=== PATIENT | female | born 1955 | race Hispanic/Latino ===

== ENCOUNTER 2018-01-09 09:08 | Outpatient (CLI) | payer BC ==
--- NOTE | 2018-01-09 15:01 | Mammography Report ---
BILATERAL DIGITAL SCREENING MAMMOGRAM with CAD: 01/09/18 09:08:00 CLINICAL: Routine screening. COMPARISON:12/02/16 FINDINGS: The breasts are heterogeneously dense, which may obscure small masses. A right asymmetry on the MLO view persists with spot compression and on the lateral view.No architectural distortion or suspicious calcifications.The left breast is negative. IMPRESSION: A right inferior asymmetry requiring further workup. BI-RADS CATEGORY: 0 -- Additional Imaging Evaluation Required RECOMMENDATION: Recall for ultrasound of the inferior right breast. ACR BI-RADS MAMMOGRAPHIC CODES: 0 = Needs additional imaging evaluation; 1 = Negative; 2 = Benign; 3 = Probably benign; 4 = Suspicious; 5 = Malignant; 6 = Known biopsy-proven malignancy COMMENT: 1. Dense breast tissue, i.e., adenosis, fibrocystic changes, etc., may obscure an underlying neoplasm. 2. Approximately 10% of cancers are not detected with mammography. 3. A negative mammography report should not delay biopsy if a clinically suspicious mass is present. COMMENT: Patient follow-up letters are generated via our [employer] application.
== END 2018-01-09 09:09 | disposition home or self-care (01) ==
LOC: SPVWC 09:08
PROVIDERS: ATTEND Surgery
DX: Z12.31 Encounter for screening mammogram for malignant neoplasm of breast (principal)
CPT/HCPCS: 77067

== ENCOUNTER 2018-01-11 14:36 | Outpatient (CLI) | payer BC ==
--- NOTE | 2018-01-12 09:50 | Ultrasound Report ---
RIGHT BREAST ULTRASOUND: 01/11/18 14:36:00 CLINICAL: Mammographic asymmetry in the lower breast on screening mammogram. COMPARISON: 01/09/18 mammogram FINDINGS: Ultrasound of the lower right breast was performed and demonstrated several benign cysts. A cyst at 7 o'clock 5 cm from the nipple measures 5 x 5 x 4 mm. A central retroareolar cyst 3 o'clock measures 9 x 9 x 5 mm. No solid mass or shadowing. IMPRESSION: Benign cysts right breast. BI-RADS 2 - - Benign RECOMMENDATION: Routine mammographic screening in one year.
== END 2018-01-11 14:37 | disposition home or self-care (01) ==
LOC: SPVWC 14:36
PROVIDERS: ATTEND Surgery
DX: N60.01 Solitary cyst of right breast (principal)

== ENCOUNTER 2018-05-10 11:06 | Day surgery (SDC) | payer BC ==
[~2018-05-10 11:06] MED LIST: AK-Dilate ONE; IOPIDINE ONE; IOPIDINE OU ONE; MYDRIACYL ONE; MYDRIACYL OU ONE; NEOFRIN OU ONE
[2018-05-10] MEDS ORDERED: IOPIDINE OU ONE (11:29)
[2018-05-10] MEDS ORDERED: MYDRIACYL OU ONE (11:29)
[2018-05-10] MEDS ORDERED: NEOFRIN OS ONE (11:29)
[2018-05-10 13:56] VITALS: BP 130/80
== END 2018-05-10 11:07 | disposition home or self-care (01) ==
LOC: OR 11:06
PROVIDERS: ATTEND Specialist
DX: H26.492 Other secondary cataract, left eye (principal); F41.9 Anxiety disorder, unspecified; F32.9 Major depressive disorder, single episode, unspecified; E03.9 Hypothyroidism, unspecified; Z96.662 Presence of left artificial ankle joint; Z98.42 Cataract extraction status, left eye; Z98.41 Cataract extraction status, right eye; Z87.891 Personal history of nicotine dependence; Z98.890 Other specified postprocedural states

== ENCOUNTER 2018-07-27 10:16 | Outpatient (CLI) | payer BC ==
--- NOTE | 2018-07-30 10:51 | Magnetic Resonance Report ---
BILATERAL BREAST MRI WITHOUT AND WITH CONTRAST: 07/27/18 10:16:00 CLINICAL: Right breast mass. Status post recent right cyst aspiration at 12 o'clock 2 cm from the nipple. COMPARISON:01/09/18 bilateral mammogram. TECHNIQUE: Axial 1.0-mm T1 without, axial high resolution 2.0-mm T2 and axial 1.0-mm dynamic Vibrant high-resolution postcontrast T1 fat saturation sequences on a 1.5 Andra magnet. The examination was performed with an 8 channel dedicated [employer] breast coil. Post processing with CAD and subtraction was performed on an [employer] workstation. 16.0 cc of Multihance was injected without incident for the contrast portion of the exam. Consent was obtained prior to the administration of the contrast. FINDINGS: Right: Minimal background parenchymal enhancement. A cluster of 2 cysts are identified at 12 o'clock 3 cm from the nipple. The larger cyst measures 13 x 8 x 8 mm and the smaller cyst measures 8 x 5 x 5 mm. The wall of the larger is 1 mm thick and demonstrates mild enhancement. Additional scattered benign cysts. No mass or suspicious enhancement. No suspicious lymph nodes. A benign intramammary lymph node measures 4 mm and is located at 12 o'clock middle depth. No suspicious lymph nodes. Left: Minimal background parenchymal enhancement. No mass or suspicious enhancement. Scattered benign cysts. No suspicious lymph nodes. IMPRESSION: Bilateral benign cysts and no suspicious finding. A cluster of 2 cysts at 12 o'clock 3 cm from the nipple correlates with the ultrasound finding. BI-RADS 2 - - Benign
== END 2018-07-27 10:17 | disposition home or self-care (01) ==
LOC: SPVIMAG 10:16
PROVIDERS: ATTEND Surgery
DX: N63.11 Unspecified lump in the right breast, upper outer quadrant (principal); E78.00 Pure hypercholesterolemia, unspecified; E03.9 Hypothyroidism, unspecified; Z80.3 Family history of malignant neoplasm of breast; Z87.891 Personal history of nicotine dependence; Z90.49 Acquired absence of other specified parts of digestive tract; Z90.710 Acquired absence of both cervix and uterus
CPT/HCPCS: A9577; C8908; 77059

== ENCOUNTER 2018-07-27 10:37 | Outpatient (CLI) | payer BC | END 2018-07-27 10:38 | disposition home or self-care (01) | LOC: LABHHL 10:37 | PROVIDERS: ATTEND Surgery | DX: N60.01 Solitary cyst of right breast (principal); E78.00 Pure hypercholesterolemia, unspecified; E03.9 Hypothyroidism, unspecified; Z90.49 Acquired absence of other specified parts of digestive tract; Z90.710 Acquired absence of both cervix and uterus; Z87.891 Personal history of nicotine dependence | CPT/HCPCS: 88112 ==

== ENCOUNTER 2019-08-02 08:27 | Outpatient (CLI) | payer OTHER | END 2019-08-02 08:28 | disposition home or self-care (01) | LOC: LABHHL 08:27 | PROVIDERS: ATTEND Surgery | DX: N63.14 Unspecified lump in the right breast, lower inner quadrant (principal); E78.00 Pure hypercholesterolemia, unspecified; E03.9 Hypothyroidism, unspecified; Z87.891 Personal history of nicotine dependence; Z90.710 Acquired absence of both cervix and uterus; Z90.49 Acquired absence of other specified parts of digestive tract | CPT/HCPCS: 88112 ==